=== PATIENT | male | born 1990 | race Caucasian/White ===

== ENCOUNTER 2019-08-16 21:13 | Emergency (ER) | payer SELFPAY ==
[~2019-08-16] VITALS: Ht 167.7 cm; Wt 70.5 kg
[2019-08-16 21:22] VITALS: BP 163/101
[2019-08-16] MEDS ORDERED: cefTRIAXone 1,000 MG/2.86 ml vial (IM ONLY) IM STA (21:35)
--- NOTE | 2019-08-16 21:42 | ED Integumentary General ---
General Chief Complaint: Skin/Wound Problems Stated Complaint: MOUTH AND FINGERS SWOLLEN Nursing Triage Note: pt reports left thumb and upper lip started to swell 3 days ago, opened thumb with greenish bloody drainage. pt states he got out of [facility] 2 weeks ago Source: patient History of Present Illness Date Seen by Provider: Aug 16, 2019 Time Seen by Provider: 21:15 Initial Comments 28 yo Male presents with swelling and redness to upper lip and left thumb. He states he has had drainage from both areas after he has poked at them. He states he has not had areas like this in the past. He has been incarcerated in the past. He is concerned this might be MRSA. He denies fever or chills. He has increased pain with moving his thumb and has throbbing pain in his upper lip. He states he had taken a few Hydrocodone for pain. Allergies and Home Medications Allergies Coded Allergies: No Known Drug Allergies (Unverified , 08/16/19) Home Medications Mupirocin 22 Gm Oint...g., 1 GM TP BID Apply thin layer to abscess/infection on lip and finger twice a day for 10 days Prescribed by: HAI BURNETTE on 08/16/192144 Sulfamethoxazole/Trimethoprim 1 Each Tablet, 1 EACH PO BID Prescribed by: HAI BURNETTE on 08/16/192144 Patient Home Medication List Home Medication List Reviewed: Yes Review of Systems Review of Systems Constitutional: No chills, No fever EENTM: see HPI Respiratory: no symptoms reported Cardiovascular: no symptoms reported Gastrointestinal: no symptoms reported Genitourinary: no symptoms reported Musculoskeletal: see HPI, other (pain and swelling to left thumb with redness to distal part of thumb) Skin: see HPI, change in color (redness and swelling to left thumb and upper lip), other (drainage from swelling at distal left thumb when he has poked it with a needle) Psychiatric/Neurological: No Symptoms Reported Past Kybcgfu-Hhlsmj-Odenbr Hx Past Med/Social Hx: Reviewed Nursing Past Med/Soc Hx Patient Social History Alcohol Use: Denies Use Recreational Drug Use: No Smoking Status: Current Everyday Smoker Type Used: Cigarettes 2nd Hand Smoke Exposure: No Recent Foreign Travel: No Contact w/Someone Who Travel: No Recent Infectious Disease Expo: No Recent Hopitalizations: No Physical Abuse: No Sexual Abuse: No Mistreated: No Fear: No Seasonal Allergies Seasonal Allergies: No Past Medical History Surgeries: No Respiratory: No Cardiac: No Neurological: No Genitourinary: No Gastrointestinal: No Musculoskeletal: No Endocrine: No HEENT: No Cancer: No Psychosocial: No Integumentary: No Blood Disorders: No Physical Exam Vital Signs Vital Signs - First Documented 08/16/19 21:22 Temp 37.1 Pulse 103 Resp 16 B/P (MAP) 163/101 (121) Pulse Ox 99 O2 Delivery Room Air Capillary Refill : Less Than 3 Seconds General Appearance: WD/WN, no apparent distress HEENT: pharynx normal, other (swollen upper lip with pustule by left nare) Neck: non-tender, full range of motion, supple, normal inspection Cardiovascular: normal peripheral pulses Extremities: normal capillary refill, swelling (left distal thumb with redness and pain. has a blister just proximal to the nail and cuticle with fluid in it. ) Neurologic/Psychiatric: alert, normal mood/affect, oriented x 3 Skin: warm/dry, other (redness to left thumb distal portion and tender around the blister proximal to his nail) Skin Problem Location: other (upper lip, left thumb) Skin Problem Character: abscess (pustule upper lip by left nare and blister with fluid just proximal to nail on left thumb and surrounding redness and swelling), erythema (upper lip and distal left thumb) Progress/Results/Core Measures Results/Orders My Orders Orders - HAI BURNETTE MD Ceftriaxone For Im Use (Rocephin For Im (08/16/19 21:35) Lidocaine 1% Inj 20 Ml (Xylocaine 1% Inj (08/16/19 21:45) Wound Culture (08/16/19 21:35) Wound Dressing-Ed (08/16/19 21:35) Medications Given in ED Current Medications Medications Dose Ordered Sig/Bro Route Start Time Stop Time Status Last Admin Dose Admin Lidocaine HCl 2.1 ml ONCE ONCE INJ 08/16/19 21:45 08/16/19 21:46 08/16/19 21:44 2.1 ML Vital Signs/I&O 08/16/19 21:22 Temp 37.1 Pulse 103 Resp 16 B/P (MAP) 163/101 (121) Pulse Ox 99 O2 Delivery Room Air Blood Pressure Mean: 121 Progress Progress Note : Progress Note the blister on his left thumb was aspirated with a needle and the drainage was sent for culture. the thumb was cleaned with betadine swabs prior to needle aspiration. He tolerated this well without any complication. give 1 gm rocephin IM and discharge on bactrim DS and bactroban. Counseled on follow up and return precautions. Departure Impression Primary Impression: Abscess of lip Additional Impression: Abscess of thumb, left Disposition: 01 HOME, SELF-CARE Condition: Stable Departure-Patient Inst. Decision time for Depature: 21:38 Referrals: NO,LOCAL PHYSICIAN (PCP) Primary Care Physician [facility] [place] Patient Instructions: ABSCESS, Bacterial Wound Culture, Cellulitis (Skin Infection), Adult (DC) Add. Discharge Instructions: Keep skin infections clean with soap and water. Apply antibiotic ointment 2 times a day Take the full course of antibiotics to help treat the infection. Check with clinic for continued care of the infection. If not improving by this weekend or worsening then return or seek medical care to see if you need IV antibiotics or possible admit to treat the infection All discharge instructions reviewed with patient and/or family. Voiced understanding. Scripts Mupirocin (Mupirocin) 22 Gm Oint...g. 1 GM TP BID for 10 Days, #22 GM 0 Refills Apply thin layer to abscess/infection on lip and finger twice a day for 10 days Prov: HAI BURNETTE MD 08/16/19 Sulfamethoxazole/Trimethoprim (Bactrim Ds Tablet) 1 Each Tablet 1 EACH PO BID for abscess/cellulitis for 10 Days, #20 TAB 0 Refills Prov: HAI BURNETTE MD 08/16/19 HAI BURNETTE MD Aug 16, 2019 21:42
[2019-08-16] MEDS ORDERED: MUPI22OI2 TP (21:45)
[2019-08-16] MEDS ORDERED: LIDOCAINE 1% INJ 20 ML 20 ML VIAL INJ ONE (21:45)
[2019-08-16] MEDS ORDERED: SULF1TAB35 PO (21:45)
--- OUTSIDE RECORDS SUMMARY | 2019-08-16 22:31 | XMS REPORT | Continuity of Care Document ---
Author Organization Unknown Address Unknown Phone Unavailable Allergies Active Description Code Type Severity Reaction Onset Reported/Identified Relationship to Patient Clinical Status Yes No Known Drug Allergies [id number] Drug Allergy Unknown N/A 08/16/2019 Medications There is no data. Problems There is no data. Procedures There is no data. Results There is no data. Encounters ACCT No. Visit Date/Time Discharge Status Pt. Type Provider Facility Loc./Unit Complaint [id number] 08/16/2019 21:15:[address] Emergency VASILE BELTRAN, HAI Lau [facility] FS MOUTH AND FINGERS SWOLLEN
--- OUTSIDE RECORDS SUMMARY | 2019-08-16 22:31 | XMS REPORT ---
Author Author Mario AZEVEDO [facility] [employer] Address Unknown Phone Unavailable Care Team Providers Care [employer] Name Role Phone PINO AZEVEDO CP Unavailable Allergies, Adverse Reactions, Alerts Substance Reaction Event Type N.K.D.A. Info Not Available Non Drug Allergy Problems Problem Type Condition Code Onset Dates Condition Statu s Assessment Dental examination Z01.20 Active Medications Medication Code System Code Instructions Start Date End Date Status Dosage Amoxicillin [facility] [address]-85 500 MG Orally every 12 hrs, vouc her August 26, 2015 September 05, 2015 2 capsules Procedures Procedure Coding System Code Date INTRAORL-PERIAPICAL 1 FILM 44854 CPT-4 D0220 September 04, 2015 INTRAORL-PERIAPICAL 1 FILM 74670 CPT-4 D0220 September 04, 2015 LTD ORAL EVALUATION - PROBLEM FOCUS CPT-4 D0140 September 04, 2015 PANORAMIC FILM SEE ALSO CODE 04574 CPT-4 D0330 September 04, 2015 Vital Signs Date/Time: September 04, 2015 Blood Pressure Diastolic 86 mmHg Blood Pressure Systolic 135 mmHg Results No Known Results Summary Purpose eClinicalWorks Submission
== END 2019-08-16 21:48 | disposition home or self-care (01) ==
LOC: ER FS 21:15
DX: K13.0 Diseases of lips (principal); L02.512 Cutaneous abscess of left hand; F17.210 Nicotine dependence, cigarettes, uncomplicated
CPT/HCPCS: 87070; 87077; 87205; 99284

== ENCOUNTER 2022-01-05 07:47 | Emergency (ER) | payer BC, OTHER ==
[~2022-01-05] VITALS: Ht 170 cm; Wt 85.0 kg
[~2022-01-05 07:47] MED LIST: MUPI22OI2 TP; SULF1TAB38 PO
[2022-01-05] MEDS ORDERED: TETANUS,DIPTH,PERTUSS P/F (BOOSTRIX) 0.5 ML VIAL IM ONE (08:00)
[2022-01-05] MEDS ORDERED: BACITRACIN OINTMENT 28 GM TUBE TOP STA (08:00)
[2022-01-05] MEDS ORDERED: CEPH500T PO (08:06)
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
[2022-01-05 08:16] VITALS: BP 156/102
== END 2022-01-05 08:16 | disposition home or self-care (01) ==
LOC: EDUNIT# 07:47 → ER FS 07:49
DX: S00.531A Contusion of lip, initial encounter (principal); S20.411A Abrasion of right back wall of thorax, initial encounter; S40.812A Abrasion of left upper arm, initial encounter; S40.811A Abrasion of right upper arm, initial encounter; S20.319A Abrasion of unspecified front wall of thorax, initial encounter; S00.81XA Abrasion of other part of head, initial encounter; Z23 Encounter for immunization; V86.56XA Driver of dirt bike or motor/cross bike injured in nontraffic accident, initial encounter; Y92.410 Unspecified street and highway as the place of occurrence of the external cause
CPT/HCPCS: 90715; 99284